=== PATIENT | female | born 1995 | race Caucasian/White ===

== ENCOUNTER 2016-04-30 23:19 | Emergency (ER) | payer BC ==
[~2016-04-30] VITALS: Ht 162.6 cm; Wt 101.0 kg
[~2016-04-30 23:19] MED LIST: ACET500T98 PO; apap/codeine
[2016-04-30 23:24] VITALS: Ht 162.6 cm; Wt 101.0 kg
--- NOTE | 2016-04-30 23:46 | ERA ---
ER Documentation Chief Complaint Date/Time DATE: 04/30/16 TIME: 23:46 Chief Complaint right knee pain HPI The patient is a 21-year-old female, presenting to the ER because of right knee pain for 3 days after she was jumping on the floor to avoid stepping on the toys. The pain is 10/10, worse with walking. She has not been taking any medication for pain. He denies any other injury. She does not smoke or drink Past medical/surgical history: None ROS All systems reviewed and are negative except as per history of present illness. Medications Home Meds Active Scripts Hydrocodone/Acetaminophen ([place] 5-325 Tablet) 1 Each Tablet, 1 TAB PO Q6H Y for PAIN, #7 TAB Prov:VALDEMAR BLOUNT MD 05/01/16 Acetaminophen (Tylenol) 500 Mg Tab, 500 MG PO Q4 Y for PAIN AND OR ELEVATED TEMP , #30 TAB Prov:NICK LAY NP 04/28/15 Reported Medications [apap/codeine] No Conflict Check 01/03/12 Allergies Allergies: Coded Allergies: No Known Allergy (Unverified , 04/30/16) PMhx/Soc History of Surgery: No Anesthesia Reaction: No Hx Neurological Disorder: No Hx Respiratory Disorders: No Hx Cardiac Disorders: No Hx Psychiatric Problems: No Hx Miscellaneous Medical Probl: No Hx Alcohol Use: No Hx Substance Use: No Hx Tobacco Use: No Physical Exam Vitals Vital Signs Date Time Temp Pulse Resp B/P Pulse Ox O2 Delivery O2 Flow Rate FiO2 04/30/16 23:24 99.2 95 20 119/74 98 Physical Exam Const: No acute distress. Head: Atraumatic. Eyes: Normal Conjunctiva. ENT: Normal External Ears, Nose and Mouth. Neck: Full range of motion. No meningismus. Resp: Clear to auscultation bilaterally. Cardio: Regular rate and rhythm, no murmurs. Abd: Soft, non distended, normal bowel sounds, non tender. Skin: No petechiae or rashes. Back: No midline or flank tenderness. Ext: Right knee is minimally edematous with crepitus, no calf tenderness, no ecchymosis, no laceration Neur: Awake and alert. No focal deficit Psych: Normal Mood and Affect. Results 24 hrs Current Medications Medications (Trade) Dose Ordered Sig/Raquel Route PRN Reason Start Time Stop Time Status Last Admin Dose Admin Acetaminophen/ Hydrocodone Bitart ([place] ()) 1 tab ONCE ONCE PO 05/01/16 00:00 05/01/16 00:01 DC 05/01/16 01:59 Ondansetron HCl (Zofran Odt) 4 mg ONCE STAT ODT 04/30/16 23:49 04/30/16 23:50 DC 05/01/16 01:59 Procedures/MDM [place] [address] Radiology Main Line: [phone] DIAGNOSTIC IMAGING REPORT Patient: MECHELLE OVALLE : 1995 Age: 21 Sex: F MR #: [id number] DOS: 05/01/16 0041 Ordering MD: VALDEMAR BLOUNT MD Location: E/R Room/Bed: PROCEDURE: CT right knee without contrast CLINICAL INDICATION: Right knee pain. TECHNIQUE: A noncontrast CT of the right knee was performed. Coronal and sagittal reformats were generated. CTDIvol: 18.43 mGy. DLP: 777.74 mGy-cm. COMPARISON: None. FINDINGS: There is approximately 1 cm lateral subluxation of the patella. No fracture is identified. The joint spaces are preserved. There is a moderate knee joint effusion. Bone mineralization is normal and there is no suspicious osseous lesion. There is mild subcutaneous fat infiltration along the anterior aspects of the knee and proximal tibia.. IMPRESSION: 1. Approximately 1 cm lateral subluxation of the patella. 2. No fracture. 3. Moderate knee joint effusion. RPTAT: HTAR .Stephan Glass MD, Date Time Electronically viewed and signed by .Stephan Glass MD, MD on 05/01/2016 01:27 .R/ CC: VALDEMAR BLOUNT MD [place] [address] Radiology Main Line: [phone] DIAGNOSTIC IMAGING REPORT Patient: MECHELLE OVALLE : 1995 Age: 21 Sex: F MR #: [id number] DOS: 04/30/16 2349 Ordering MD: VALDEMAR BLOUNT MD Location: E/R Room/Bed: PROCEDURE: XR Knee. CLINICAL INDICATION: Post traumatic right knee pain. Status post fall. TECHNIQUE: AP, lateral and tunnel views of the right knee were obtained. COMPARISON: None. FINDINGS: No fracture or osseous lesion is identified. The patella appears lateral in position on the AP and tunnel views concerning for a lateral dislocation/ subluxation. Mineralization is within normal limits. Joint spaces are preserved. Small suprapatellar joint effusion is present and there is mild diffuse soft tissue swelling. RPTAT:HJJR IMPRESSION: 1. Laterally position right patella concerning for lateral subluxation or dislocation. 2. No evidence of fracture. 3. Soft tissue swelling and small joint effusion. Physician Angely Date Time Electronically viewed and signed by Physician Angely on 05/01/2016 00:34 JR/ CC: VALDEMAR BLOUNT MD MEDICAL MAKING DECISION: The patient is a 21-year-old female, presenting to the ER because of acute right knee injury. She was treated with [place] terminal p.o. for pain, Zofran ODT for nausea with good response. The differential diagnoses considered include but are not limited to fracture, contusion, sprain , internal derangement Departure Diagnosis: Primary Impression: Right knee injury Condition: Good Comments She was discharged with right knee immobilizer with crutches, [place]. Post right knee immobilizer vascular is intact I discussed the findings with the patient. I advised the patient to follow-up with the on-call orthopedist Dr Peralta in about 1-2 days, sooner if needed and return if any concern. She would need to have MRI for further evaluation VALDEMAR BLOUNT MD Apr 30, 2016 23:46
[2016-04-30] MEDS ORDERED: ONDANSETRON (ODT) 4 MG TAB ODT STA (23:49)
[2016-05-01] MEDS ORDERED: HYDROCODONE/APAP (10/325) TAB PO ONE
--- NOTE | 2016-05-01 00:34 | RADRPT ---
PROCEDURE: XR Knee. CLINICAL INDICATION: Post traumatic right knee pain. Status post fall. TECHNIQUE: AP, lateral and tunnel views of the right knee were obtained. COMPARISON: None. FINDINGS: No fracture or osseous lesion is identified. The patella appears lateral in position on the AP and tunnel views concerning for a lateral dislocation/subluxation. Mineralization is within normal dupont its. Joint spaces are preserved. Small suprapatellar joint effusion is present and there is mild di ffuse soft tissue swelling. RPTAT:HJJR IMPRESSION: 1. Laterally position right patella concerning for lateral subluxation or dislocation. 2. No evidence of fracture. 3. Soft tissue swelling and small joint effusion. Physician Angely Date Time Electronically viewed and signed by Physician Angely on 05/01/2016 00:34 /
--- NOTE | 2016-05-01 01:27 | RADRPT ---
PROCEDURE: CT right knee without contrast CLINICAL INDICATION: Right knee pain. TECHNIQUE: A noncontrast CT of the right knee was performed. Coronal and sagittal reformats were generated. CTDIvol: 18.43 mGy. DLP: 777.74 mGy-cm. COMPARISON: None. FINDINGS: There is approximately 1 cm lateral subluxation of the patella. No fracture is identified. The jerardo nt spaces are preserved. There is a moderate knee joint effusion. Bone mineralization is normal and there is no suspicious osseous lesion. There is mild subcutaneous fat infiltration along the anteri or aspects of the knee and proximal tibia.. IMPRESSION: 1. Approximately 1 cm lateral subluxation of the patella. 2. No fracture. 3. Moderate knee joint effusion. RPTAT: HTAR .Stephan Glass MD, Date Time Electronically viewed and signed by .Stepahn Glass MD, on 05/01/2016 01:27 .R/
[2016-05-01] MEDS ORDERED: HYDR-906 PO (02:33)
[2016-05-01 04:09] VITALS: BP 119/60; PULSE 70; RESP 18; TEMP 98.6
== END 2016-05-01 04:24 | disposition home or self-care (01) ==
LOC: E/R 23:19
DX: S89.91XA Unspecified injury of right lower leg, initial encounter (principal); R40.2142 Coma scale, eyes open, spontaneous, at arrival to emergency department; R40.2252 Coma scale, best verbal response, oriented, at arrival to emergency department; R40.2362 Coma scale, best motor response, obeys commands, at arrival to emergency department; R11.0 Nausea; X58.XXXA Exposure to other specified factors, initial encounter; Y92.9 Unspecified place or not applicable
CPT/HCPCS: 29505; 73562; 73700; Z7610

== ENCOUNTER 2016-10-03 15:25 | Emergency (ER) | payer BC ==
[~2016-10-03] VITALS: Ht 162.6 cm; Wt 103.5 kg
[~2016-10-03 15:25] MED LIST changes: +HYDR-906 PO
[2016-10-03 15:32] VITALS: Ht 162.6 cm; Wt 103.5 kg
[2016-10-03] MEDS ORDERED: FLUT9.9S NASAL (15:54)
[2016-10-03] MEDS ORDERED: AZIT250T94 PO (15:55)
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
== END 2016-10-03 16:20 | disposition home or self-care (01) ==
LOC: FTE 15:25
DX: H92.02 Otalgia, left ear (principal)
CPT/HCPCS: 99283

== ENCOUNTER 2017-01-15 19:38 | Inpatient (IN) | payer BC ==
[~2017-01-15] VITALS: Ht 162.6 cm; Wt 105.8 kg
[~2017-01-15 19:38] MED LIST changes: +AZIT250T94 PO; +FLUT9.9S NASAL
[2017-01-15 19:51] VITALS: BP 125/62; PULSE 71; RESP 18; Ht 162.6 cm; Wt 105.8 kg
[2017-01-15] MEDS ORDERED: PREN1TAB17 PO (19:54)
[2017-01-15] MEDS ORDERED: NIFEdipine 10 MG CAP ONE (20:24)
[2017-01-15] MEDS ORDERED: TERBUTALINE 1 ML ONE (20:24)
[2017-01-15] MEDS: NIFEdipine 10 MG CAP PO SCH ×2 (20:27→23:56)
[2017-01-15] MEDS ORDERED: BUTORPHANOL 2 MG INJ IV PRN (20:30)
[2017-01-15] MEDS ORDERED: OXYTOCIN 30 UNITS/LR 500 ML IV SCH ×2 (20:30)
[2017-01-15] MEDS ORDERED: MISOPROSTOL 200 MCG TAB PR PRN (20:30)
[2017-01-15] MEDS ORDERED: TERBUTALINE 1 MG/ML INJ SC SCH (20:30)
[2017-01-15] MEDS ORDERED: AMPICILLIN 2 GM/NS (PMX) 100 ML IV ONE (20:30)
[2017-01-15] MEDS ORDERED: LIDOCAINE 1% (MPF) 30 ML INJ INJ PRN (20:30)
[2017-01-15] MEDS ORDERED: CARBOPROST 250 MCG INJ IM PRN (20:30)
[2017-01-15] MEDS ORDERED: OXYTOCIN 30 UNITS/LR 500 ML IV PRN (20:30)
[2017-01-15] MEDS ORDERED: METHYLERGONOVINE 0.2 MG INJ IM PRN (20:30)
--- NOTE | 2017-01-15 21:09 | TRIAGE ---
OB Triage Datetime Report Generated by CPN: 01/15/2017 21:08 Datetime: 01/15/2017 20:27 Stage of : OB Triage Labor Evaluation Frequency: 2-5 Monitor Mode: External Duration (sec)2399: 50-90 Quality: Moderate Pattern: Normal: <= 5 Contractions in 10 Minutes Resting Tone [place]: Relaxed Heart Rate FHR Baseline Rate: 145 Monitor Mode: External US Variability: Moderate 6-25 bpm Accelerations: 15X15 Decelerations: None Pain Assessment Pain Scale: 9 Pain Presence: Intermittent Pain Type: Contraction Pain Location: Abdomen Pain Goal: 3 Pain Relief Measures: Comfort Measures Datetime: 01/15/2017 20:01 Vaginal Exam Dilatation (cms): 2.0 Effacement (%): 60 Station: -3 Membrane Status: Intact Datetime: 01/15/2017 19:46 EGA: 36.0 Datetime: 01/15/2017 19:45 Stage of : OB Triage Assessment Type: Triage Time of Arrival: 01/15/2017 19:30 Arrived By: Wheelchair Arrived From: Emergency Dept Chief Complaint: UC'S SINCE LAST NIGHT; PT STATES SHE WENT TO ANOTHER [facility] ER THIS MORNING AND RECEIVED ONE DOSE OF TERBUTALINE Movement: Present Contractions: Regular Time Contractions Began: 01/14/2017 22:30 Contractions: 3-5 Rupture of Membranes: Denies Vaginal Bleeding: None Vaginal Discharge: Present Recent Sexual Intercouse: Denies Abdominal Trauma: Not Applicable Patient Complaints: Contractions Time Provider Notified: 01/15/2017 20:00 Provider Notified: VINCE (Annotations: Data stored by CPN on behalf of user) Initial Plan: NST; VE Maternal Assessment Level of Consciousness: Fully Conscious DTR's/Clonus: DTRs 2+; No Clonus Headache: Denies Blurred Vision: No Respiratory Effort: Unlabored; Regular Rhythm; Equal Expansion Breath Sounds, Left: Clear and Equal Breath Sounds, Right: Clear and Equal Nausea/Vomiting: Denies RUQ Epigastric Pain: Denies Lower Extremities Edema: Bilateral Lower Extremities Degree: 1+ Upper Extremities Edema: None Degree: None Facial Edema: None Temperature Route: Oral Fall Risk Assessment History of Falling: (0) No Secondary Diagnosis: (0) No Ambulatory Aid: (0) Bedrest/Nurse Assist IV Therapy: (0) No Gait: (0) Normal/Bedrest/Immobile Mental Status: (0) Oriented to Own Ability Fall Score: 0 Fall Risk Score Definition: No Risk: No action required Datetime: 01/15/2017 19:41 Contraction Comments: TOCO APPLIED Comments: US APPLIED
[2017-01-15] MEDS ORDERED: TERBUTALINE 1 MG/ML INJ SC ONE (21:15)
[2017-01-15] MEDS: LACTATED RINGER'S 1,000 ML IV SCH (21:30)
[2017-01-15] MEDS: BETAMET NA PHOS/AC(6 MG/ML) 5ML INJ IM SCH (21:50)
[2017-01-15 22:57] LABS: BASOPHILS % 0.2 % (0.0-2.0); EOSINOPHILS % 0.3 % (0.0-7.0); HEMATOCRIT 33.3 % (37.0-47.0); HEMOGLOBIN 10.4 g/dl (12.0-16.0); LYMPHOCYTES # 3.5 10^3/ul (0.8-2.9); LYMPHOCYTES % 29.6 % (15.0-51.0); MEAN CORPUSCULAR HEMOGLOBIN 23.7 pg (29.0-33.0); MEAN CORPUSCULAR HGB CONC 31.2 g/dl (32.0-37.0); MEAN PLATELET VOLUME 8.6 fl (7.4-10.4); MONOCYTE # 0.9 10^3/ul (0.3-0.9); MONOCYTES % 7.6 % (0.0-11.0); NEUTROPHIL # 7.4 10^3/ul (1.6-7.5); NEUTROPHILS % 61.9 % (39.0-77.0); PLATELET COUNT 413 10^3/UL (140-415); RED BLOOD COUNT 4.38 10^6/ul (4.20-5.40); RED CELL DISTRIBUTION WIDTH 15.7 % (11.5-14.5)
[2017-01-15 23:15] LABS: INR 0.96; PROTIME 12.8 Sec (12.2-14.2)
[2017-01-15 23:16] LABS: PARTIAL THROMBOPLASTIN TIME 26.1 Sec (25.0-35.0)
[2017-01-16] MEDS: AMPICILLIN 1 GM/NS (PMX) 50 ML IV SCH ×4 (01:44→13:17)
[2017-01-16] MEDS: LACTATED RINGER'S 1,000 ML IV SCH ×3 (01:44→23:29)
[2017-01-16] MEDS ORDERED: MAGNESIUM SULFATE 4 GM/100 ML 100 ML ONE (03:47)
[2017-01-16] MEDS ORDERED: MAGNESIUM SULFATE 20 GM/500 ML 500 ML IV ONE (03:47)
[2017-01-16] MEDS ORDERED: LACTATED RINGER'S 1,000 ML IV SCH (04:02)
[2017-01-16] MEDS ORDERED: MAGNESIUM SULFATE 4 GM/100 ML 100 ML IV ONE (04:30)
[2017-01-16] MEDS ORDERED: MAGNESIUM SULFATE 20 GM/500 ML 500 ML IV SCH (05:00)
[2017-01-16] MEDS ORDERED: EPHEDrine SULFATE 50 MG/5 ML SYG ONE (07:00)
[2017-01-16] MEDS: BETAMET NA PHOS/AC(6 MG/ML) 5ML INJ IM SCH (09:58)
[2017-01-16] MEDS ORDERED: OXYTOCIN 30 UNITS/LR 500 ML IV SCH (10:00)
[2017-01-16] MEDS ORDERED: CEFAZOLIN 2 GM/50 ML (PMX) 50 ML IV SCH (10:00)
[2017-01-16] MEDS ORDERED: LACTATED RINGER'S 500 ML IV ONE (10:25)
[2017-01-16] MEDS ORDERED: ONDANSETRON 4 MG INJ IV ONE (10:30)
[2017-01-16] MEDS ORDERED: CITRIC ACID/NA CITRATE 30 ML CUP PO ONE (10:30)
[2017-01-16] MEDS ORDERED: TRIMETHOBENZAMIDE 100 MG/ML VIAL IM PRN (12:30)
[2017-01-16] MEDS ORDERED: NALOXONE (0.4 MG/ML) INJ IV PRN (12:30)
[2017-01-16] MEDS ORDERED: DIPHENHYDRAMINE 50 MG INJ IV PRN (12:30)
[2017-01-16] MEDS ORDERED: KETOROLAC 30 MG INJ IV PRN (12:30)
[2017-01-16] MEDS ORDERED: NALBUPHINE HCL (10 MG/1 ML) INJ IV PRN (12:30)
[2017-01-16] MEDS ORDERED: morphine 4 MG/ML VIAL IV PRN (12:30)
[2017-01-16] MEDS ORDERED: ONDANSETRON 4 MG INJ IV PRN (12:30)
[2017-01-16] MEDS ORDERED: FENTAnyl 2MCG/ML-ROPIV 0.2% 100 ML BAG EPI SCH (12:30)
[2017-01-16] MEDS ORDERED: morphine 2 MG INJ IV PRN (12:30)
[2017-01-16] MEDS ORDERED: FENTAnyl 50 MCG/ML VIAL ONE (15:05)
[2017-01-16] MEDS ORDERED: morphine SULFATE/PF (10 MG/10 ML) INJ ONE (15:05)
[2017-01-16] MEDS ORDERED: CHLOROPROCAINE 3% (MPF) 20 ML INJ ONE (15:05)
[2017-01-16] MEDS ORDERED: ROPIVACAINE 0.5 % 30 ML VIAL ONE (15:06)
[2017-01-16] MEDS ORDERED: METOCLOPRAMIDE 10 MG INJ ONE (15:32)
[2017-01-16] MEDS ORDERED: PHENYLephrine (100 MCG/ML) 5ML SYG ONE (15:52)
--- NOTE | 2017-01-16 17:49 | HP ---
Date/Time of Note Date/Time of Note DATE: 01/16/17 TIME: 17:43 OB - History Hx of Present Free Text/Dictation 22-year-old female 3 para 2 at 36 weeks gestation admitted complaining of liver pain started a.m. of admission Patient refer herself to another facility in labor and after receiving terbutaline was given to her and this patient was discharged home Patient self-referred herself to [facility] Patient has previous history of 2 She also has history of labor Chief Complaint: Liver pains Last Menstrual Period: May 08, 2016 Estimated Due Date: Feb 12, 2017 : 3 Para: 2 Care: Good Care Ultrasounds: Normal mid trimester US Obstetrical Complications: Other ( labor) Medical Complications: Other (Previous section 2) Past Family/Social History * Past Medical, Surgical, Family and Obstetric Histories reviewed from chart. Blood Type: O+ Rubella: immune RPR/VDRL: Negative GBS Status: Unknown HBsAG: Negative OB Admission Exam Vital Signs Vital Signs Vital Signs Date Time Temp Pulse Resp B/P Pulse Ox O2 Delivery O2 Flow Rate FiO2 01/15/17 19:51 97.9 71 18 125/62 Room Air Physical Exam HEENT: WNL Heart: Rhythm Normal Lungs: Clear, Equal Abdomen: WNL Extremities: Normal Reflexes: Normal Cervical Dilatation: Fingertip Effacement: 0% Station: -3 Membranes: Intact Heart Rate: 140's Accelerations: Accelerations Present Decelerations: No Decelerations Varibility: Marked Contractions on Admission: < 5 Minutes Apart Date/Time Contractions Began: January 15, 2017 a.m. Frequency of Contractions: Every 5 minutes Duration: Over 60 seconds Intensity: Firm Last 72 hours Lab Results CBC & BMP 01/15/17 22:11 Magnesium Level Test 01/16/17 06:00 Magnesium Level 3.9 H OB Assessment/Plan Reason for admission: labor Other Assessment: 36 weeks gestation Previous 2 Other plan: Try to tocolyse uterine contraction using terbutaline and Procardia Steroids was given to patient already MARCE HUYNH MD Jan 16, 2017 17:49
--- NOTE | 2017-01-16 17:52 | QN ---
Documentation Comment Patient was started on magnesium sulfate by on-call physician She still has uterine contractions frequently Cervical exam became as 80% on 5 or 6 cm with presenting part vertex at -3 station After entertaining the situation with the patient limited of trial of labor was offered to the patient She agreed to have trial of labor standing possible complications After rupturing of membranes patient was given epidural anesthesia in labor continue After reevaluation after 3 hours patient did not have any further progress and cervical dilatation with cervix staying at 5 6 cm without any further progress After entertaining the condition with the patient she elected to have a repeat section as mode of delivery understanding complications of the C- section including but not limited to infection and hemorrhage MARCE HUYNH MD Jan 16, 2017 17:52
--- NOTE | 2017-01-16 17:57 | OPR ---
Operative Report Planned Procedure Procedure date Jan 16, 2017 Procedure(s) Repeat delivery Performed by see signature line Assisting provider: PEDRO CHI MD Anesthesiologist: YANETH SEXTON MD Pre-procedure diagnosis 36 weeks gestation Previous section 2 Labor pains and labor Arrest of dilatation and descent Failed Anesthesia Type: epidural Procedure Description Under satisfactory anaesthesia a Pfannenstiel incision was made two fingerbreadth above and parallel to the symphysis of pubis around the previous scar and previous scar was removed Incision was extended laterally to the border of the Recti muscles on either sides. Incision was carried down with sharp and blunt dissection until fascia was reached. Anterior Recti muscle fascia was incised in mid portion and incision extended laterally to the border of skin incision. Fascia was mobilized from muscle superiorly and Recti muscles were from midline using sharp and blunt dissection. Peritoneum was visualized; Avoiding bowel and bladder it was incised . Incision was extended superiorly and inferiorly. Bladder blade was placed. Posterior peritoneum covering the lower segment of the uterus and lower segment of the uterus were incised.Low transverse uterine incision was made on lower segment of the uterus. Incision extended laterally to the border of Round Lig. on either sides and baby was delivered from OT. position . Amniotic fluid appeared meconium stained. Cord blood was obtained and cord had 3 vessels . Placenta was delivered spontaneously and appeared intact and complete. Intrauterine cavity was rubbed with a laparotomy sponge. Uterine incision was closed in 2 layers using running stitches of No1 Monocryl. Hemostasis appeared secure. Ovaries and Fallopian tubes were within normal limits. Announcing needle, lap sponge and instrument count to be correct abdomen was closed in layers as follows: Peritoneum and Recti muscles with running stitches of 20 Vicryl. Fascia with running stitch of No 1 PDS. Subcutaneous tissue with running stitches of 20 Chromic and skin was closed using hi. Patient tolerated the procedure well and was transferred to [facility] in good condition. Post-Procedure Post-procedure diagnosis Repeat delivery Findings: Live Baby in OT position Dark meconium Nuchal cord Estimated blood loss: other (500 cc) Specimen(s): no Grafts/Implants: no Complication(s): no Pt Condition post procedure: stable Disposition: PACU Physician Certification I, the undersigned physician, hereby certify that I have discussed the procedure described in this consent form with this patient (or the patient's legal account retention representative), including: * The risk and benefits of the procedure; * Any adverse reactions that may reasonably be expected to occur; * Any alternative efficacious methods of treatment which may be medically viable ; * The potential problems that may occur during recuperation; * Potential for blood transfusion and associated risks/benefits; and * Any research or economic interest I may have regarding this treatment. I further certify that the patient/legally responsible person was encouraged to ask question and that all questions were answered. MARCE HUYNH MD Jan 16, 2017 17:57
[2017-01-16 20:30] VITALS: BP 133/58; PULSE 56; RESP 19
[2017-01-16] MEDS ORDERED: NA PHOSPHATE/BIPHOS 133 ML ENEMA PR PRN (22:30)
[2017-01-16] MEDS ORDERED: MISOPROSTOL 200 MCG TAB PR PRN (22:30)
[2017-01-16] MEDS ORDERED: METHYLERGONOVINE 0.2 MG INJ IM PRN (22:30)
[2017-01-16] MEDS ORDERED: LANOLIN 7 GM TUBE TOP PRN (22:30)
[2017-01-16] MEDS ORDERED: OXYTOCIN 30 UNITS/LR 500 ML IV PRN (22:30)
[2017-01-16] MEDS ORDERED: CARBOPROST 250 MCG INJ IM PRN (22:30)
[2017-01-16] MEDS: CEFAZOLIN 2 GM/50 ML (PMX) 50 ML IVPB SCH (23:32)
[2017-01-17] VITALS: BP 104/56; PULSE 55; RESP 19
[2017-01-17 04:00] VITALS: BP 101/53; PULSE 68; RESP 19
[2017-01-17] MEDS: CLINDAMYCIN 300 MG CAP PO SCH ×5 (06:24→23:58)
[2017-01-17] MEDS: LACTATED RINGER'S 1,000 ML IV SCH ×3 (06:50→22:25)
[2017-01-17] MEDS: CEFAZOLIN 2 GM/50 ML (PMX) 50 ML IVPB SCH ×2 (07:40→15:03)
[2017-01-17 07:43] LABS: BASOPHILS % 0.1 % (0.0-2.0); HEMOGLOBIN 8.4 g/dl (12.0-16.0); LYMPHOCYTES # 2.3 10^3/ul (0.8-2.9); LYMPHOCYTES % 15.6 % (15.0-51.0); MEAN CORPUSCULAR HEMOGLOBIN 23.9 pg (29.0-33.0); MEAN CORPUSCULAR HGB CONC 31.1 g/dl (32.0-37.0); MEAN CORPUSCULAR VOLUME 76.9 fl (82.0-101.0); MEAN PLATELET VOLUME 8.8 fl (7.4-10.4); MONOCYTE # 0.9 10^3/ul (0.3-0.9); MONOCYTES % 6.1 % (0.0-11.0); NEUTROPHIL # 11.4 10^3/ul (1.6-7.5); NEUTROPHILS % 77.7 % (39.0-77.0); PLATELET COUNT 347 10^3/UL (140-415); RED BLOOD COUNT 3.51 10^6/ul (4.20-5.40); RED CELL DISTRIBUTION WIDTH 15.8 % (11.5-14.5); WHITE BLOOD COUNT 14.7 10^3/ul (4.8-10.8)
[2017-01-17] MEDS: ENOXAPARIN 40 MG/0.4 ML SYG SC SCH (07:47)
[2017-01-17 08:30] VITALS: BP 90/53; PULSE 61; RESP 16
[2017-01-17] MEDS: SENNA/DOCUSATE NA (8.6MG/50MG) TAB PO SCH ×2 (09:04→21:18)
[2017-01-17] MEDS ORDERED: BISACODYL 10 MG SUPP PR ONE (10:00)
[2017-01-17] MEDS ORDERED: OXYCODONE/ACETAMINOPHEN (5/325) TAB PO PRN (12:30)
[2017-01-17] MEDS ORDERED: HYDROCODONE/APAP (5/325) TAB PO PRN (12:30)
[2017-01-17 12:50] VITALS: BP 99/54; PULSE 74; RESP 16
[2017-01-17] MEDS ORDERED: KETOROLAC 30 MG INJ IV PRN (13:00)
[2017-01-17 16:00] VITALS: BP 98/55; PULSE 82; RESP 18
--- NOTE | 2017-01-17 17:31 | PN ---
Date/Time of Note Date/Time of Note DATE: 01/17/17 TIME: 17:28 Assessment/Plan VTE Prophylaxis VTE Prophylaxis Intervention: ambulation Lines/Catheters IV Catheter Type (from Nrsg): Peripheral IV Assessment/Plan Assessment/Plan S/P C/S POD # 1 will advance diet and ambulate Subjective 24 Hr Interval Summary had BM Constitutional: BM, ambulates, flatus, improved, no complaints, urine output Pain Control: well controlled Exam/Review of Systems Vital Signs Vitals Vital Signs Date Time Temp Pulse Resp B/P Pulse Ox O2 Delivery O2 Flow Rate FiO2 01/17/17 16:00 98.5 82 18 98/55 Room Air 01/17/17 12:22 97 21 Intake and Output 01/16/17 01/16/17 01/17/17 15:00 23:00 07:00 Intake Total 2075 ml 695 ml 1050 ml Output Total 1550 ml 1150 ml 950 ml Balance 525 ml -455 ml 100 ml Exam Free Text/Dictation Abdomen: soft BS + abdomen: not distended ivcision is covered Constitutional: alert, oriented, well developed Psych: nl mood/affect, no complaints Head: atraumatic, normocephalic Eyes: EOMI, nl conjunctiva, nl lids, nl sclera ENMT: mucosa pink and moist, nl external ears & nose, nl lips & teeth, nl nasal mucosa & septum Neck: non-tender, supple Respiratory: clear to auscultation, normal air movement Cardiovascular: nl pulses, regular rate and rhythm Gastrointestinal: nl liver, spleen, non-tender, soft Musculoskeletal: nl extremities to inspection, nl gait and stance Extremities: normal pulses Neurological: [employer] II-XII intact, nl mental status, nl speech, nl strength Skin: nl turgor, rash or lesions Lymph: nl lymph nodes Results Result Diagram: 01/17/17 0715 MARCE HUYNH MD Jan 17, 2017 17:31
[2017-01-17 20:00] VITALS: BP 113/66; PULSE 73; RESP 18
[2017-01-17] MEDS: IBUPROFEN 800 MG TAB PO SCH (22:48)
[2017-01-18] VITALS: BP 94/59; PULSE 63; RESP 18
[2017-01-18 04:00] VITALS: BP 115/67; PULSE 63; RESP 18
[2017-01-18] MEDS: LACTATED RINGER'S 1,000 ML IV SCH (06:25)
[2017-01-18] MEDS: CLINDAMYCIN 300 MG CAP PO SCH ×3 (06:30→17:29)
[2017-01-18] MEDS: IBUPROFEN 800 MG TAB PO SCH ×3 (06:30→21:43)
[2017-01-18 08:00] VITALS: BP 104/83; PULSE 69; RESP 18
[2017-01-18] MEDS: ENOXAPARIN 40 MG/0.4 ML SYG SC SCH (08:41)
[2017-01-18] MEDS: SENNA/DOCUSATE NA (8.6MG/50MG) TAB PO SCH ×2 (09:42→21:00)
[2017-01-18 10:56] LABS: BASOPHILS % 0.2 % (0.0-2.0); EOSINOPHILS % 0.2 % (0.0-7.0); HEMOGLOBIN 8.9 g/dl (12.0-16.0); LYMPHOCYTES # 3.6 10^3/ul (0.8-2.9); LYMPHOCYTES % 25.5 % (15.0-51.0); MEAN CORPUSCULAR HGB CONC 29.7 g/dl (32.0-37.0); MEAN CORPUSCULAR VOLUME 77.5 fl (82.0-101.0); MEAN PLATELET VOLUME 8.9 fl (7.4-10.4); MONOCYTE # 0.8 10^3/ul (0.3-0.9); MONOCYTES % 5.7 % (0.0-11.0); NEUTROPHIL # 9.6 10^3/ul (1.6-7.5); PLATELET COUNT 390 10^3/UL (140-415); RED BLOOD COUNT 3.87 10^6/ul (4.20-5.40); RED CELL DISTRIBUTION WIDTH 16.2 % (11.5-14.5); WHITE BLOOD COUNT 14.1 10^3/ul (4.8-10.8)
--- NOTE | 2017-01-18 15:49 | DS ---
Date/Time of Note Date/Time of Note DATE: 01/18/17 TIME: 15:47 Discharge Summary Admission/Discharge Info Admit Date/Time Jan 15, 2017 at 20:30 Discharge Date/Time January 19, 2017 Discharge Diagnosis Status post repeat Patient Condition: Good Procedures Repeat Hx of Present Illness 22-year-old female had repeat at 36 weeks Hospital Course Uncomplicated Home Meds Active Scripts Azithromycin* (Zithromax*) 250 Mg Tablet, 250 MG PO .ZPACK DIRECTED, #6 TAB TAKE 500 MG (2 TABS) THE FIRST DAY THEN 250 MG (1 TAB) DAYS 2-5 Prov:PRINCE PEREZ MD 10/03/16 Fluticasone Propionate (Flonase Allergy Relief) 9.9 Ml [place].susp, 1 SPRAY NASAL DAILY, #1 BOTTLE TO EACH NOSTRIL Prov:PRINCE PEREZ MD 10/03/16 Hydrocodone/Acetaminophen ([place] 5-325 Tablet) 1 Each Tablet, 1 TAB PO Q6H Y for PAIN, #7 TAB Prov:AYO BLOUNT MD 05/01/16 Acetaminophen (Tylenol) 500 Mg Tab, 500 MG PO Q4 Y for PAIN AND OR ELEVATED TEMP , #30 TAB Prov:NICK LAY NP 04/28/15 Reported Medications Vit-Iron Fumarate-FA ( Tablet) 1 Each Tablet, 1 TAB PO DAILY, TAB 01/15/17 [apap/codeine] No Conflict Check 01/03/12 Follow-up Plan To 3 days in clinic for staple removal Primary Care Provider Ayo Patrick MD Time spent on discharge: > 30 minutes Pending Labs Laboratory Tests Test 01/18/17 10:00 White Blood Count 14.110^3/ul (4.8-10.8) Red Blood Count 3.8710^6/ul (4.20-5.40) Hemoglobin 8.9g/dl (12.0-16.0) Hematocrit 30.0% (37.0-47.0) Mean Corpuscular Volume 77.5fl (82.0-101.0) Mean Corpuscular Hemoglobin 23.0pg (29.0-33.0) Mean Corpuscular Hemoglobin Concent 29.7g/dl (32.0-37.0) Red Cell Distribution Width 16.2% (11.5-14.5) Platelet Count 75256^3/UL (140-415) Mean Platelet Volume 8.9fl (7.4-10.4) Neutrophils % 68.0% (39.0-77.0) Lymphocytes % 25.5% (15.0-51.0) Monocytes % 5.7% (0.0-11.0) Eosinophils % 0.2% (0.0-7.0) Basophils % 0.2% (0.0-2.0) Nucleated Red Blood Cells % 0.0/100WBC (0.0-0.0) Neutrophils # 9.610^3/ul (1.6-7.5) Lymphocytes # 3.610^3/ul (0.8-2.9) Monocytes # 0.810^3/ul (0.3-0.9) Eosinophils # 0.010^3/ul (0.0-0.5) Basophils # 0.010^3/ul (0.0-0.1) Nucleated Red Blood Cells # 0.010^3/ul (0.0-0.0) MARCE HUYNH MD Jan 18, 2017 15:48
--- NOTE | 2017-01-18 15:50 | DS ---
Date/Time of Note Date/Time of Note Home next day DATE: 01/18/17 TIME: 15:49 Obstetrical Discharge Record Final Diagnosis Final Diagnosis: Term delivered Other Final Diagnosis Status post repeat labor Section Section: Repeat Complications Labor Condition on Discharge Physical Assessment Last Vitals: See nurse's notes Voiding: Yes Bowel Movement: Yes Breast: Soft, non-tender, Filling Fundus: Firm Abdomen and Incision: Abdomen is soft bowel sounds present and not distended Incision is clean without induration or erythema and healing well Episiotomy: Not applicable Calf Tenderness: No Patient Condition: Good MARCE HUYNH MD Jan 18, 2017 15:49
--- NOTE | 2017-01-18 15:51 | PD.PPDC ---
CLINICAL ESTHETICIAN Discharge Instruction Provider Information Physician Information 22-year-old female had repeat at 36+ weeks because of persistent on relentless labor Diagnosis Final Diagnosis: labor, status post repeat Condition Patient Condition: Good Diet Diet: Resume Regular Diet Activity/Restrictions Activity: May Shower Restrictions: No Exercising No Lifting Nothing in the Vagina Return to Work or School: Mar 22, 2017 Follow-up Follow-up with Physician: 2, 3, Day/Days (For staple removal) Return to clinic for ASSEMBLER MOVEMENT Instructions: Fever greater than 101 Chills OB Instructions: Breast Tenderness Depression Comment: Pelvic rest and no heart activity for 6 weeks Surgical Instructions: Incisional Drainage Incisional Redness MARCE HUYNH MD Jan 18, 2017 15:51
[2017-01-18] MEDS ORDERED: IBUP800T25 PO (15:52)
[2017-01-18 16:00] VITALS: BP 128/72; PULSE 81; RESP 18
[2017-01-18] MEDS ORDERED: MEASLES,MUMPS,RUBELLA VACCINE INJ SC* ONE (19:30)
[2017-01-18 20:00] VITALS: BP 121/55; PULSE 70; RESP 18
[2017-01-19] MEDS: CLINDAMYCIN 300 MG CAP PO SCH ×3 (00:17→12:26)
[2017-01-19 04:00] VITALS: BP 113/71; PULSE 65; RESP 18
[2017-01-19] MEDS: IBUPROFEN 800 MG TAB PO SCH (06:03)
[2017-01-19 08:00] VITALS: BP 110/69; PULSE 80; RESP 18
[2017-01-19] MEDS ORDERED: DIPHTH/TET/ACEL PERTUSS (ADULT) 0.5 ML VIAL IM* ONE (09:00)
[2017-01-19] MEDS: SENNA/DOCUSATE NA (8.6MG/50MG) TAB PO SCH (09:56)
[2017-01-19] MEDS: ENOXAPARIN 40 MG/0.4 ML SYG SC SCH (09:59)
[2017-01-19 10:37] LABS: BASOPHILS % 0.2 % (0.0-2.0); EOSINOPHILS # 0.2 10^3/ul (0.0-0.5); EOSINOPHILS % 1.5 % (0.0-7.0); HEMATOCRIT 30.8 % (37.0-47.0); HEMOGLOBIN 9.3 g/dl (12.0-16.0); LYMPHOCYTES # 2.8 10^3/ul (0.8-2.9); LYMPHOCYTES % 21.3 % (15.0-51.0); MEAN CORPUSCULAR HEMOGLOBIN 23.1 pg (29.0-33.0); MEAN CORPUSCULAR HGB CONC 30.2 g/dl (32.0-37.0); MEAN CORPUSCULAR VOLUME 76.4 fl (82.0-101.0); MEAN PLATELET VOLUME 8.9 fl (7.4-10.4); MONOCYTE # 0.6 10^3/ul (0.3-0.9); MONOCYTES % 4.3 % (0.0-11.0); NEUTROPHIL # 9.5 10^3/ul (1.6-7.5); NEUTROPHILS % 72.2 % (39.0-77.0); PLATELET COUNT 420 10^3/UL (140-415); RED BLOOD COUNT 4.03 10^6/ul (4.20-5.40); RED CELL DISTRIBUTION WIDTH 16.5 % (11.5-14.5); WHITE BLOOD COUNT 13.2 10^3/ul (4.8-10.8)
== END 2017-01-19 13:50 | disposition home or self-care (01) | DRG 765 ==
LOC: OBT 19:38 → L-D 19:39 → OBT 20:30 → L-D 20:30 → PP1 01-16 20:30
PROVIDERS: ADMIT Obstetrics & Gynecology; ATTEND Obstetrics & Gynecology
PROC: 3E0P3VZ Introduction of Hormone into Female Reproductive, Percutaneous Approach (ICD-10-PCS; 2017-01-16)
PROC: 10D00Z1 Extraction of Products of Conception, Low, Open Approach (ICD-10-PCS; principal; 2017-01-16 15:30)
DX: O34.211 Maternal care for low transverse scar from previous cesarean delivery (principal); O60.14X0 Preterm labor third trimester with preterm delivery third trimester, not applicable or unspecified; O99.214 Obesity complicating childbirth; Z68.41 Body mass index [BMI] 40.0-44.9, adult; O99.02 Anemia complicating childbirth; D64.9 Anemia, unspecified; E66.01 Morbid (severe) obesity due to excess calories; Z3A.36 36 weeks gestation of pregnancy; Z37.0 Single live birth
CPT/HCPCS: 62319; 83735; 85025; 85610; 85730; 86592; 86900; 86901; 87340; 90715; 94760; 96372; 99464; J2400; G0463; J0290; J0690; J0702; J1200; J1650; J1885; J2274; J2370; J2405; J2590; J2765; J2795; J3010; J3105; J3475; J7120

== ENCOUNTER 2017-06-03 08:26 | Emergency (ER) | END 2017-06-03 10:53 | disposition left against medical advice (07) ==

== ENCOUNTER 2017-12-10 11:53 | Emergency (ER) | END 2017-12-10 12:55 | disposition home or self-care (01) ==

== ENCOUNTER 2018-09-09 23:25 | Emergency (ER) | payer OTHER ==
[~2018-09-09] VITALS: Ht 162.6 cm; Wt 105.7 kg
[~2018-09-09 23:25] MED LIST changes: -AZIT250T94 PO; +CYCL10TA7 PO; -HYDR-906 PO; +IBUP-1544 PO; +NAPR-985 PO; +PREN1TAB17 PO; -apap/codeine
[2018-09-09 23:38] VITALS: Ht 162.6 cm; Wt 105.7 kg
--- NOTE | 2018-09-10 03:55 | ERD ---
ER Documentation Chief Complaint Chief Complaint pain/swelling left foot/ankle x 3 days. denies trauma HPI This is a 23-year-old female presents emergency department with complaints of left knee/left ankle/left foot pain after falling 3 days ago. LMP: Stated there was 2 days ago. G3, . Denies headache, head injury, loss of consciousness, dizziness, neck pain, neck stiffness, throat pain, difficulty swallowing, difficulty breathing lying flat, shoulder pain, chest pain, back pain, abdominal pain, nausea, vomiting, constipation, diarrhea, urinary symptoms, or possibility being , loss of bowel and bladder control, numbness or tingling sensation, calf pain, recent travel, recent major surgery in the last 3 weeks, calf pain, recent long travel, recent exposure to any illness, recent antibiotic use in the last 3 months, fever, chills, seizures. Past medical history: Surgical history: Social: Denies smoking, use of alcoholic beverages, use of illegal drugs. ROS All systems reviewed and are negative except as per history of present illness. Medications Home Meds Active Scripts Ibuprofen* (Motrin*) 800 Mg Tab, 800 MG PO Q6H PRN for PAIN AND OR ELEVATED TEMP, #30 TAB Prov:VALERIE PACHECO 09/10/18 Cyclobenzaprine Hcl* (Cyclobenzaprine Hcl*) 10 Mg Tablet, 10 MG PO QHS, #7 TAB Prov:LYLE CAI PA-C 12/10/17 Naproxen* (Naprosyn*) 500 Mg Tablet, 500 MG PO BID PRN for PAIN AND/OR INFLAMMATION, #30 TAB Prov:LYLE CAI PA-C 12/10/17 Ibuprofen* (Ibuprofen*) 800 Mg Tablet, 800 MG PO Q8, #30 TAB 0 Refills Prov:MARCE HUYNH MD 01/18/17 Fluticasone Propionate (Flonase Allergy Relief) 9.9 Ml [place].susp, 1 SPRAY NASAL DAILY, #1 BOTTLE TO EACH NOSTRIL Prov:PRINCE PEREZ MD 10/03/16 Acetaminophen (Tylenol) 500 Mg Tab, 500 MG PO Q4 PRN for PAIN AND OR ELEVATED TEMP, #30 TAB Prov:NICK LAY NP 04/28/15 Reported Medications Vit-Iron Fumarate-FA ( Tablet) 1 Each Tablet, 1 TAB PO DAILY, TAB 01/15/17 Allergies Allergies: Coded Allergies: No Known Allergy (Unverified , 01/15/17) PMhx/Soc History of Surgery: No Anesthesia Reaction: No Hx Neurological Disorder: No Hx Respiratory Disorders: No Hx Cardiac Disorders: No Hx Psychiatric Problems: No Hx Miscellaneous Medical Probl: No Hx Alcohol Use: No Hx Substance Use: No Hx Tobacco Use: No Physical Exam Vitals Vital Signs Date Temp Pulse Resp B/P (MAP) Pulse Ox O2 O2 Flow FiO2 Time Delivery Rate 09/10/18 98.0 74 16 114/69 98 Room Air 05:45 (84) 09/09/18 98.2 81 18 126/2 (43) 98 23:38 Physical Exam Const: No acute distress Head: Atraumatic Eyes: Normal Conjunctiva ENT: Normal External Ears, Nose and Mouth. Neck: Full range of motion. No meningismus. Resp: Clear to auscultation bilaterally Cardio: Regular rate and rhythm, no murmurs Abd: Soft, non tender, non distended. Normal bowel sounds Skin: No petechiae or rashes Back: No midline or flank tenderness. L-spine is in midline with good and full range of motion and is no swelling/deformity/bulging/point of tenderness. Ext: No cyanosis, or edema. Left knee: Mild swelling with no obvious deformity. Mild tenderness to palpation. Good and full range of motion. Left tibia and fibular aspect: Unremarkable. No calf tenderness. Left ankle: Mild swelling. No obvious deformity. Good range of motion but with pain. Left foot: No obvious deformity. Mild tenderness to palpation. Mild swelling. Left pedal pulse within normal limits. Left toes has good and full range of motion. Capillary refills to left lower extremity is less than 2 seconds. Right knee: Unremarkable. Right tibia and fibular area: Unremarkable. Right ankle: Unremarkable. Right foot: No deformities. Right pedal pulse within normal limits. Capillary refills to right lower extremity is less than 2 seconds. Bilateral hips are stable and unremarkable. No neurovascular deficits. Neur: Awake and alert Psych: Normal Mood and Affect Results 24 hrs Laboratory Tests Test 09/10/18 04:28 POC Beta HCG, Qualitative NEGATIVE Current Medications Medications Dose Sig/Raquel Start Time Status Last (Trade) Ordered Route PRN Stop Time Admin Dose Reason Admin Ketorolac 30 mg ONCE STAT 09/10/18 DC 09/10/18 Tromethamine IM 03:56 04:36 (Toradol) 09/10/18 03:58 Procedures/MDM Diagnostic tests: POC urine : Negative. X-ray of the left knee: No evidence of acute fracture dislocation or joint effusion. X-ray of the left ankle: Diffuse soft tissue swelling without acute fracture dislocation or foreign body. X-ray of the left foot: No evidence of acute fracture dislocation or foreign bodies. Treatment: Toradol IM. Ekvin wrap application by EMT. Crutches with crutch training was provided by EMT. Re-evaluation: Denies pain. No neurovascular deficit prior to and after the application of Kevin wrap. Patient stated that she feels much better at this time and that she is ready to go home. Patient and family member stated that they are comfortable going home. Differential diagnosis I have low suspicion for open fracture, compartment syndrome, displaced fracture, Lisfranc fracture, joint effusion. Final diagnosis: Ankle sprain. Ankle contusion. Knee contusion. Prescription: Motrin. Follow-up with PCP in the next 24-48 hours. Follow-up with outbound sales specialist in the next 24 to 48 hours. Come back here in the emergency department for any new symptoms or any worsening symptoms. All questions and concerns were answered. Patient and family members verbalized understanding and agreed with plan of care. Hemodynamically stable on discharge. Disclaimer: Inadvertent spelling and grammatical errors are likely due to EHR/dictation software use and do not reflect on the overall quality of patient care. Also, please note that the electronic time recorded on this note does not necessarily reflect the actual time of the patient encounter. Departure Diagnosis: Primary Impression: Ankle sprain Additional Impressions: Soft tissue swelling Ankle contusion Knee contusion Condition: Stable Additional Instructions: Follow-up with PCP in the next 24-48 hours. Follow-up with outbound sales specialist in the next 24 to 48 hours. Come back here in the emergency department for any new symptoms or any worsening symptoms. VALERIE PACHECO Sep 10, 2018 03:55
[2018-09-10] MEDS ORDERED: KETOROLAC 30 MG INJ IM STA (03:56)
[2018-09-10] MEDS ORDERED: IBUP800T48 PO (05:19)
[2018-09-10 05:45] VITALS: BP 114/69; PULSE 74; RESP 16
== END 2018-09-10 06:06 | disposition home or self-care (01) ==
LOC: FTE 23:25
DX: S90.02XA Contusion of left ankle, initial encounter (principal); S93.402A Sprain of unspecified ligament of left ankle, initial encounter; S80.02XA Contusion of left knee, initial encounter; W18.39XA Other fall on same level, initial encounter; Y92.9 Unspecified place or not applicable
CPT/HCPCS: 73562; 73610; 73630; 81025; 96372; Z7502